=== PATIENT | male | born 1935 | race Caucasian/White ===

== ENCOUNTER 2020-07-11 12:41 | Outpatient (CLI) | payer MEDICARE, OTHER ==
[2020-07-12 02:22] LABS: SARS-CoV-2 PCR by NAA Not Detected (NotDetected)
== END 2020-07-11 12:42 | disposition home or self-care (01) ==
LOC: CSHLAB 12:41
PROVIDERS: ATTEND Internal Medicine Cardiovascular Disease
DX: Z20.822 Contact with and (suspected) exposure to COVID-19 (principal)
CPT/HCPCS: 87635; U0003; U0005

== ENCOUNTER 2023-10-25 12:14 | Outpatient (CLI) | payer MEDICARE, OTHER | END 2023-10-25 12:15 | disposition home or self-care (01) | LOC: CSHCP 12:14 | PROVIDERS: ATTEND Internal Medicine Cardiovascular Disease | DX: J44.9 Chronic obstructive pulmonary disease, unspecified (principal); R94.2 Abnormal results of pulmonary function studies | CPT/HCPCS: 94010; 94726; 94729; 94760 ==